=== PATIENT | male | born 1995 | race Caucasian/White ===

== ENCOUNTER 2017-06-07 11:53 | Emergency (ER) | payer OTHER ==
[~2017-06-07] VITALS: Ht 167.6 cm; Wt 77.3 kg
[2017-06-07] MEDS ORDERED: IBUPROFEN 800 MG TABLET PO ONE (15:15)
[2017-06-07 15:45] VITALS: BP 128/80
== END 2017-06-07 16:17 | disposition home or self-care (01) ==
LOC: EMS 11:54
DX: S83.91XA Sprain of unspecified site of right knee, initial encounter (principal); F17.210 Nicotine dependence, cigarettes, uncomplicated; W51.XXXA Accidental striking against or bumped into by another person, initial encounter; Y93.89 Activity, other specified; Y92.89 Other specified places as the place of occurrence of the external cause; Y99.8 Other external cause status
CPT/HCPCS: 99284

== ENCOUNTER 2018-05-10 14:17 | Emergency (ER) | payer OTHER ==
[~2018-05-10] VITALS: Ht 167.6 cm; Wt 77.3 kg
[2018-05-10 14:51] VITALS: BP 139/58
[2018-05-10] MEDS ORDERED: KETOROLAC TROMETHAMINE 10 MG TABLET PO ONE (17:00)
== END 2018-05-10 17:24 | disposition home or self-care (01) ==
LOC: EMS 14:18
DX: K04.7 Periapical abscess without sinus (principal); F17.210 Nicotine dependence, cigarettes, uncomplicated